=== PATIENT | female | born 1965 ===

== ENCOUNTER 2019-04-10 14:47 | Inpatient (IN) | payer MEDICAID ==
[2019-04-10 15:05] VITALS: BMI 43.0
[2019-04-10 15:52] LABS: BASO % 0.2 % (0.0-2.0); EOS # 0.1 K/uL (0.0-0.7); EOS % 1.5 % (0.0-4.0); HEMOGLOBIN 13.5 g/dL (11.0-16.0); LYMPH # 2.9 K/uL (1.0-4.3); LYMPH % 34.4 % (20.0-40.0); MEAN CELL VOLUME 90.1 fL (81.0-99.0); MEAN CORPUSCULAR HEMOGLOBIN 30.9 pg (27.0-31.0); MEAN CORPUSCULAR HGB CONC 34.3 g/dL (33.0-37.0); MEAN PLATELET VOLUME 8.8 fL (7.2-11.7); MONO # 0.6 K/uL (0.0-0.8); MONO % 6.8 % (0.0-10.0); NEUT # 4.8 K/uL (1.8-7.0); NEUT % 57.1 % (50.0-75.0); NRBC % 0.1 % (0.0-2.0); RBC 4.37 Mil/uL (3.80-5.20); RED CELL DISTRIBUTION WIDTH 12.8 % (11.5-14.5); WHITE BLOOD COUNT 8.5 K/uL (4.8-10.8)
[2019-04-10] MEDS ORDERED: Sodium Chloride 0.9% 1,000 ML IV ONE (15:54)
[2019-04-10 15:55] LABS: SQUAMOUS EPITHIAL 1 /hpf (0-5); URINE BILIRUBIN NEGATIVE (NEGATIVE); URINE BLOOD NEGATIVE (NEGATIVE); URINE CLARITY Clear (Clear); URINE COLOR Yellow (YELLOW); URINE GLUCOSE (UA) NORMAL (Normal); URINE LEUKOCYTE ESTERASE NEG Leu/uL (Negative); URINE PROTEIN NEGATIVE (NEGATIVE); URINE UROBILINOGEN NORMAL mg/dL (0.2-1.0)
[2019-04-10] MEDS ORDERED: Morphine 4 MG/ML VIAL ONE (15:58)
--- NOTE | 2019-04-10 15:59 | C.PDOC ---
History Of Present Illness 54 year old female presents to ED with complaint of left-side pelvic pain that began yesterday. She states that she has had this pain once in the past and went to [facility]. Patient was diagnosed with bilateral ovarian cysts with the left larger than the right. She was instructed to follow up with her MANAGER WATER WASTEWATER, which she has not done. She also complains of dysuria and nausea. Patient is post-menopausal and her last period was sometime in 2018. She denies vomiting, diarrhea, vaginal bleeding, fever, and flank pain. Time Seen by Provider: 04/10/19 15:03 Chief Complaint (Nursing): Female Genitourinary History Per: Patient History/Exam Limitations: no limitations Onset/Duration Of Symptoms: Days (1) Current Symptoms Are (Timing): Still Present Location Of Pain/Discomfort: Other (left side of pelvis) Quality Of Discomfort: "Pain" Associated Symptoms: Nausea. denies: Fever, Chills, Vomiting, Diarrhea, Urinary Symptoms Past Medical History Reviewed: Historical Data, Nursing Documentation, Vital Signs Vital Signs: Last Vital Signs Temp 97.6 F 04/10/19 14:54 Pulse 86 04/10/19 14:54 Resp 18 04/10/19 14:54 BP 133/99 H 04/10/19 14:54 Pulse Ox 98 04/10/19 14:54 Primary Care Provider: Crystal Hernandez - Medical History PMH: Anxiety, Arthritis, Back Problems (chronic pain), Depression, GERD, HTN, Chronic Pain Denies: Chronic Kidney Disease Surgical History: Cholecystectomy (2010) - [facility] Procedures INJECT STEROID (12/27/14) LUMBOSAC SPINE X-RAY NEC (12/27/14) SPINAL CANAL INJECT NEC (12/27/14) Family History: States: Unknown Family Hx - Social History Hx Alcohol Use: No Hx Substance Use: Yes (tramadol) Review Of Systems Constitutional: Negative for: Fever, Chills Gastrointestinal: Positive for: Nausea. Negative for: Vomiting, Diarrhea Genitourinary: Positive for: Dysuria, Pelvic Pain (left-sided). Negative for: Hematuria, Vaginal Bleeding Musculoskeletal: Negative for: Back Pain Physical Exam - Physical Exam Appears: Non-toxic, Other (uncomfortable) Skin: Normal Color, Warm, Dry Head: Atraumatic, Normacephalic Neck: Normal ROM, Supple Chest: Symmetrical, No Deformity Cardiovascular: Rhythm Regular, No Murmur Respiratory: No Accessory Muscle Use, No Rales, No Rhonchi, No Wheezing Gastrointestinal/Abdominal: Bowel Sounds (normoactive), Soft, Tenderness (left lower quadrant/left pelvic area), No Guarding, No Rebound, Other (obese, (-) McBurney's point tenderness) Back: No CVA Tenderness Extremity: Capillary Refill (<2 seconds) Extremity: Bilateral: Atraumatic, Normal Color And Temperature, Normal ROM Pulses: Left Radial: Normal, Right Radial: Normal Neurological/Psych: Oriented x3, Normal Speech, Normal Cognition ED Course And Treatment - Laboratory Results Result Diagrams: 04/10/19 15:48 04/10/19 15:48 O2 Sat by Pulse Oximetry: 98 (in RA) Pulse Ox Interpretation: Normal - CT Scan/US Transvaginal US Other Rad Studies (CT/US): Read By Radiologist CT/US Interpretation: IMPRESSION: Left adnexal tubular structure appears consistent with hydrosalpinx. 3.5 x 2.5 x 3.3 cm probable right anterior uterine fibroid. Progress Note: Transvaginal US ordered for patient. CMP, lipase, CBC, B-HCG and UA ordered for patient. Patient given Morphine IVP and IV fluids. Disposition - Disposition Forms: [employer] (Slovenian) - Scribe Statement The provider has reviewed the documentation as recorded by the Scribe (Yasmin Knutson) All medical record entries made by the Scribe were at my direction and personally dictated by me. I have reviewed the chart and agree that the record accurately reflects my personal performance of the history, physical exam, medical decision making, and the department course for this patient. I have also personally directed, reviewed, and agree with the discharge instructions and disposition.
[2019-04-10] MEDS ORDERED: Sodium Chloride 0.9% 1,000 ML ONE (16:01)
[2019-04-10 16:06] LABS: ALB/GLOB RATIO 1.5 (1.0-2.1); ALBUMIN 4.6 g/dL (3.5-5.0); ALT/SGPT 21 U/L (9-52); AST/SGOT 23 U/L (14-36); BLOOD UREA NITROGEN 20 mg/dL (7-17); CALCIUM 9.6 mg/dl (8.6-10.4); GFR NON-AFRICAN AMERICAN > 60; LIPASE 1384 U/L (23-300)
--- NOTE | 2019-04-10 17:17 | US ---
Date of service: 04/10/2019 HISTORY: left pelvic pain r/o torsion COMPARISON: None available. TECHNIQUE: Real-time transabdominal pelvic ultrasound was performed. In addition a transvaginal pelvic ultrasound was necessary to better depict pelvic anatomy. FINDINGS: UTERUS: Measures 7.8 x 4.1 x 5.2 cm. Anteverted. 3.5 x 2.5 x 3.3 cm heterogeneous uterine mass consistent with right anterior uterine fibroid. ENDOMETRIUM: Measures 6 mm in diameter. CERVIX: No cervical abnormality identified. RIGHT OVARY: Measures 1.7 x 1.1 x 1.7 cm. Blood flow is demonstrated. LEFT OVARY: Measures 2.1 x 1.1 x 1.6 cm. Blood flow is demonstrated. Adnexal tubular structure appears consistent with hydrosalpinx. FREE FLUID: No significant free fluid noted. OTHER FINDINGS: None. IMPRESSION: Left adnexal tubular structure appears consistent with hydrosalpinx. 3.5 x 2.5 x 3.3 cm probable right anterior uterine fibroid.
--- NOTE | 2019-04-10 20:06 | CP.PCM.HP ---
History of Present Illness - History of Present Illness History of Present Illness: Patient seen, evaluated and examined in the Multi-Purpose Room, in the E.D. at approx 1835 hours. Patient received on a stretcher, in moderate pain and discomfort; very anxious patient is a 54 y.o. . LNMP 01/2018, no vaginal bleeding since who presented to E.D. c/o LLQ pain, onset 3 days ago, pain scale 10/10, described as a sharp stabbing sensation, in the LLQ (patient points to the left groin area). Denies nausea, vomiting, diarrhea or constipation. This is the third time patient has experienced this pain. Patient received morphine and toradol in the E.D.: reports pain scale now 8/10. HPI: LLQ pain first onset 2 months ago. Seen in E.D. at [facility], treated for UTI with antibiotics; pain resolved completely. Then 1 month ago, similar pain occurred. Patient returned to E.D. at [facility]. Again, thought to have a UTI and again treated with antibiotics. Patient was advised to follow up with her GEOPHYSICAL PROSPECTING SURVEYOR "as they said I had some kind of cysts"; "I haven't had time to do so". Patient has ongoing GEOPHYSICAL PROSPECTING SURVEYOR relationship with Dr. Martins at [facility] ([address] [place] [address]). 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 P Ob: 1981, , male, 7lb 9oz. [facility] P GEOPHYSICAL PROSPECTING SURVEYOR: 11 x monthly x 7. No h/o STIs, abnormal Pap, leiomyomata. Was told to have ovarian cysts - none of which ever required surgical intervention. Secondary infertility. Monogamous; sexually active. Last Pap late 02/2019. Last Mammogram 2017. Not yet had colonoscopy PMH: HTN. GERD. Chronic low back pain. H/O gallstones. PSH: 2015, laparoscopic cholecystectomy, [facility]; no complications. 1998, D&C - infertility evaluation NKDA Meds: Lisinopril 20 mg po QD. Famotidine 40 mg Q 24H; 2 other meds for chronic LBP one of which is a muscle relaxant - patient does not recall names Soc Hx: denies tobacco, illicit drug or EtOH use. x 30 years. Unemployed. Fam Hx: Father alive 88 y.o. heart disease. Mother age 63 - lymphoma Present on Admission - Present on Admission Any Indicators Present on Admission: No Review of Systems - Review of Systems All systems: reviewed and no additional remarkable complaints except - Gastrointestinal Gastrointestinal: As Per HPI, Abdominal Pain Past Patient History - Infectious Disease Hx of Infectious Diseases: None - Past Medical History & Family History Past Medical History?: Yes Pertinent Family History: Father - heart disease Mother - lymphoma - Past Social History Smoking Status: Never Smoked Alcohol: None Drugs: Denies - CARDIAC Hx Cardiac Disorders: Yes Hx Hypertension: Yes - PULMONARY Hx Respiratory Disorders: No - NEUROLOGICAL Hx Neurological Disorder: No - HEENT Hx HEENT Problems: No - RENAL Hx Chronic Kidney Disease: No - ENDOCRINE/METABOLIC Hx Endocrine Disorders: No - HEMATOLOGICAL/ONCOLOGICAL Hx Blood Disorders: No - INTEGUMENTARY Hx Dermatological Problems: No - MUSCULOSKELETAL/RHEUMATOLOGICAL Hx Arthritis: Yes Hx Back Pain: Yes - GASTROINTESTINAL Hx Gastrointestinal Disorders: Yes Hx Gall Bladder Disease: Yes Hx Gastroesophageal Reflux: Yes Other/Comment: Acid reflux, gallstones. - GENITOURINARY/GYNECOLOGICAL Hx Genitourinary Disorders: No Hx Urinary Tract Infection: Yes LMP:: 01/2018 : 1 Para: 1 Termination of : 0 - PSYCHIATRIC Hx Anxiety: Yes Hx Depression: Yes Hx Substance Use: Yes (tramadol) - SURGICAL HISTORY Hx Cholecystectomy: Yes (2014) Hx Dilation and Curettage: Yes (1998) - ANESTHESIA Hx Anesthesia: Yes Hx Anesthesia Reactions: No Hx Malignant Hyperthermia: No Meds Allergies/Adverse Reactions: Allergies Allergy/AdvReac Type Severity Reaction Status Date / Time No Known Allergies Allergy Verified 04/10/19 14:53 Physical Exam - Constitutional Appears: Well, No Acute Distress - Head Exam Head Exam: ATRAUMATIC, NORMAL INSPECTION, NORMOCEPHALIC - ENT Exam ENT Exam: Mucous Membranes Moist - Respiratory Exam Respiratory Exam: NORMAL BREATHING PATTERN - Cardiovascular Exam Cardiovascular Exam: REGULAR RHYTHM - GI/Abdominal Exam GI & Abdominal Exam: Normal Bowel Sounds, Soft Additional comments: Morbidly obese. Non tender in all quadrants. Minimal LLQ discomfort to deep palpation. No rebound tenderness; no guarding - Exam External exam: NORMAL EXTERNAL EXAM Speculum exam: NORMAL SPECULUM EXAM Bimanual exam: NORMAL BIMANUAL EXAM (No cervical motion, uterine or adnexal tenderness. Minimal suprapubic tenderness) - Extremities Exam Extremities exam: Positive for: full ROM, normal inspection - Back Exam Back exam: NORMAL INSPECTION - Neurological Exam Neurological exam: Alert, Oriented x3 - Psychiatric Exam Psychiatric exam: Anxious, Normal Affect - Skin Skin Exam: Dry, Intact, Normal Color, Warm Results - Vital Signs Recent Vital Signs: Last Vital Signs Temp 97.8 F 04/10/19 19:18 Pulse 84 04/10/19 19:18 Resp 20 04/10/19 19:18 BP 140/82 04/10/19 19:18 Pulse Ox 98 04/10/19 19:18 - Labs Result Diagrams: 04/10/19 15:48 04/10/19 15:48 Labs: Laboratory Results - last 24 hr 04/10/19 04/10/19 04/10/19 15:48 15:48 15:48 WBC 8.5 RBC 4.37 Hgb 13.5 Hct 39.3 MCV 90.1 MCH 30.9 MCHC 34.3 RDW 12.8 Plt Count 310 MPV 8.8 Neut % (Auto) 57.1 Lymph % (Auto) 34.4 [place] % (Auto) 6.8 Eos % (Auto) 1.5 Baso % (Auto) 0.2 Neut # (Auto) 4.8 Lymph # (Auto) 2.9 [place] # (Auto) 0.6 Eos # (Auto) 0.1 Baso # (Auto) 0.0 Sodium 137 Potassium 3.7 Chloride 102 Carbon Dioxide 25 Anion Gap 14 BUN 20 H Creatinine 0.5 L Est GFR ( Amer) > 60 Est GFR (Non-Af Amer) > 60 Random Glucose 116 H Calcium 9.6 Total Bilirubin 0.5 AST 23 ALT 21 Alkaline Phosphatase 73 Total Protein 7.7 Albumin 4.6 Globulin 3.1 Albumin/Globulin Ratio 1.5 Lipase 1384 H Urine Color Yellow Urine Clarity Clear Urine pH 6.0 Ur Specific [place] 1.005 Urine Protein Negative Urine Glucose (UA) Normal Urine Ketones Negative Urine Blood Negative Urine Nitrate Negative Urine Bilirubin Negative Urine Urobilinogen Normal Ur Leukocyte Esterase Neg Urine WBC (Auto) < 1 Urine RBC (Auto) < 1 Ur Squamous Epith Cells 1 Assessment & Plan - Assessment and Plan (Free Text) Assessment: Pelvic ultrasound: uterus 7.8 x 4.1 x 5.2 cm; with a "3.5 x 2.5 x 3.3 cm probable right anterior uterine fibroid". "Left adnexal structure appears c/w hydrosalpinx". No significant free fluid. Right ovary 1.7 x 1.1 x 1.7 cm. Left ovary 2.1 x 1.1 x 1.6 cm. Blood flow demonstrated in both adnexae. WBC 8.5 Lipase 1384 54 y.o. P1, postmenopausal x 1 year, h/o chronic low back pain, GERD, UTIs, anxiety with left hydrosalpinx and elevated lipase - no sign of infection. Benign abdominal and revenue cycle analyst/pelvic examination. Patient admitted for pain management. Patient reassured previous finding of ovarian cysts is wnl for women in the child-bearing years. During these years, with monthly ovulation, ovarian cysts are common and regress spontaneously. It was D/W patient LLQ pain of this recurrent nature, may have a GI component to it and that GI evaluation should be considered to R/O diverticulitis. Lastly, will seek assistance in evaluating elevated lipase, especially as patient is S/P cholecystectomy. Patient expressed an understanding of the above, and agrees with the above plan of management. Jerel zafarkiana is clinically stable. Plan: Admit RUQ ultrasound Heart Healthy Diet, until midnight. NPO after midnight for abdominal ultrasound Lisinopril 20 mg p.o. daily Famitidine 40 mg p.o. daily Toradol 10 mg p.o. Q 6 h, PRN GI consultation Medicine consultation - Date & Time Date: 04/10/19 Time: 20:21
--- NOTE | 2019-04-11 00:16 | CP.PCM.CON ---
<Alicia Moreno - Last Filed: 04/11/19 04:32> History of Present Illness - History of Present Illness History of Present Illness: PGY-1 Alicia Moreno D.O. Medicine Consult note for Dr. Cale Brooks's service: Patient is a 54 yo female with HTN, GERD, obesity, chronic back pain, and ovar azucena cysts who presented with LLQ pain. Medicine was consulted by OBGYN for elevate lipase. Patient reports having episodes of LLQ. She was evaluated at [facility] and was told she had overian cysts that need to be observed as an outpatient. Patient says she has not had the chance to see her OBGYN in the last month since her last episode of pain. Patient states that she has a cholecystectomy about 5 years ago. She denies epigastric or RUQ pain. She denies alcohol use. She endorses occasional constipation that she attributes to Percocet use for back pain. PMH: HTN, GERD, obesity, ovarian cysts, recurrent UTIs, chronic low back pain PSH: lap cholecystectomy 2014 Meds: Lisinopril 20 mg PO daily, Famotidine 40 mg PO daily, Percocet 10/325 mg PO Q8H PRN, unspecified muscle relaxant All: NKA FH: father (88)- heart disease, mother ( 63)- lymphoma SH: , unemployed, denies alcohol, tobacco, and illicit drug use PMD: unknown OBGYN: [facility] Review of Systems - Constitutional Constitutional: absent: Chills, Fever - EENT Eyes: absent: Change in Vision Ears: absent: Decreased Hearing, Tinnitus Nose/Mouth/Throat: absent: Nasal Congestion, Sore Throat - Cardiovascular Cardiovascular: absent: Chest Pain, Palpitations - Respiratory Respiratory: absent: Cough, Dyspnea - Gastrointestinal Gastrointestinal: Constipation (occasional ). absent: Abdominal Pain, Diarrhea, Nausea, Vomiting - Genitourinary Genitourinary: absent: Dysuria, Hematuria - Reproductive: Female Reproductive:Female: Menopausal, Pelvic Pain (LLQ/inguinal) - Musculoskeletal Musculoskeletal: Back Pain - Integumentary Integumentary: absent: Lesions, Pruritus, Rash - Neurological Neurological: absent: Dizziness, Numbness, Focal Weakness, Tingling - Psychiatric Psychiatric: absent: Anxiety, Depression - Endocrine Endocrine: absent: Fatigue, Palpitations - Hematologic/Lymphatic Hematologic: absent: Easy Bleeding, Easy Bruising, Lymphadenopathy Past Patient History - Infectious Disease Hx of Infectious Diseases: None - Tetanus Immunizations Tetanus Immunization: Unknown - Past Medical History & Family History Past Medical History?: Yes Past Family History: Reviewed and not pertinent - Past Social History Smoking Status: Never Smoked Chewing Tobacco Use: No Cigar Use: No Alcohol: None Drugs: Denies Home Situation {Lives}: With Family () - CARDIAC Hx Cardiac Disorders: Yes Hx Hypertension: Yes - PULMONARY Hx Respiratory Disorders: No - NEUROLOGICAL Hx Neurological Disorder: No - HEENT Hx HEENT Problems: No - RENAL Hx Chronic Kidney Disease: No - ENDOCRINE/METABOLIC Hx Endocrine Disorders: No - HEMATOLOGICAL/ONCOLOGICAL Hx Blood Disorders: No - INTEGUMENTARY Hx Dermatological Problems: No - MUSCULOSKELETAL/RHEUMATOLOGICAL Hx Falls: No - GASTROINTESTINAL Hx Gastrointestinal Disorders: Yes Hx Gall Bladder Disease: Yes Hx Gastroesophageal Reflux: Yes Other/Comment: Acid reflux, gallstones. - GENITOURINARY/GYNECOLOGICAL Hx Genitourinary Disorders: No Hx Urinary Tract Infection: Yes - PSYCHIATRIC Hx Substance Use: Yes (tramadol) - SURGICAL HISTORY Hx Cholecystectomy: Yes (2014) Hx Dilation and Curettage: Yes (1998) - ANESTHESIA Hx Anesthesia: Yes Hx Anesthesia Reactions: No Hx Malignant Hyperthermia: No Meds Allergies/Adverse Reactions: Allergies Allergy/AdvReac Type Severity Reaction Status Date / Time No Known Allergies Allergy Verified 04/10/19 14:53 - Medications Medications: Current Medications Famotidine (Pepcid) 40 mg PO DAILY [facility] Lactated Ringer's (Lactated Ringer's) 1,000 mls @ 100 mls/hr IV .Q10H [facility] Ketorolac Tromethamine (Toradol) 10 mg PO Q6 PRN PRN Reason: Pain, moderate (4-7) Last Admin: 04/10/19 22:01 Dose: 10 mg Lisinopril (Zestril) 20 mg PO DAILY [facility] Pneumococcal Polyvalent Vaccine (Pneumovax 23 Vaccine) 0.5 ml IM .ONCE ONE Stop: 04/12/19 10:01 Physical Exam - Constitutional Appears: Non-toxic, No Acute Distress - Head Exam Head Exam: ATRAUMATIC, NORMAL INSPECTION - Eye Exam Eye Exam: EOMI, Normal appearance, PERRL - ENT Exam ENT Exam: Mucous Membranes Moist - Neck Exam Neck exam: Positive for: Normal Inspection - Respiratory Exam Respiratory Exam: Clear to Auscultation Bilateral, NORMAL BREATHING PATTERN - Cardiovascular Exam Cardiovascular Exam: RRR, +S1, +S2 - GI/Abdominal Exam GI & Abdominal Exam: Soft, Tenderness (LLQ). absent: Guarding, Rebound Additional comments: negative Resendez's sign - Extremities Exam Extremities exam: Positive for: normal inspection - Neurological Exam Neurological exam: Alert, CN II-XII Intact, Oriented x3 - Psychiatric Exam Psychiatric exam: Normal Affect, Normal Mood - Skin Skin Exam: Dry, Normal Color, Warm Results - Vital Signs Recent Vital Signs: Last Vital Signs Temp 97.8 F 04/10/19 19:18 Pulse 84 04/10/19 19:18 Resp 20 04/10/19 19:18 BP 140/82 04/10/19 19:18 Pulse Ox 98 04/10/19 19:18 - Labs Result Diagrams: 04/10/19 15:48 04/10/19 15:48 Labs: Laboratory Results - last 24 hr 04/10/19 04/10/19 04/10/19 15:48 15:48 15:48 WBC 8.5 RBC 4.37 Hgb 13.5 Hct 39.3 MCV 90.1 MCH 30.9 MCHC 34.3 RDW 12.8 Plt Count 310 MPV 8.8 Neut % (Auto) 57.1 Lymph % (Auto) 34.4 [place] % (Auto) 6.8 Eos % (Auto) 1.5 Baso % (Auto) 0.2 Neut # (Auto) 4.8 Lymph # (Auto) 2.9 [place] # (Auto) 0.6 Eos # (Auto) 0.1 Baso # (Auto) 0.0 Sodium 137 Potassium 3.7 Chloride 102 Carbon Dioxide 25 Anion Gap 14 BUN 20 H Creatinine 0.5 L Est GFR ( Amer) > 60 Est GFR (Non-Af Amer) > 60 Random Glucose 116 H Calcium 9.6 Total Bilirubin 0.5 AST 23 ALT 21 Alkaline Phosphatase 73 Total Protein 7.7 Albumin 4.6 Globulin 3.1 Albumin/Globulin Ratio 1.5 Lipase 1384 H Urine Color Yellow Urine Clarity Clear Urine pH 6.0 Ur Specific [place] 1.005 Urine Protein Negative Urine Glucose (UA) Normal Urine Ketones Negative Urine Blood Negative Urine Nitrate Negative Urine Bilirubin Negative Urine Urobilinogen Normal Ur Leukocyte Esterase Neg Urine WBC (Auto) < 1 Urine RBC (Auto) < 1 Ur Squamous Epith Cells 1 Assessment & Plan - Assessment and Plan (Free Text) Assessment: Patient is a 54 yo female with HTN, GERD, obesity, chronic back pain, and ovarian cysts who presented with LLQ pain. Medicine was consulted by OBGYN for elevate lipase. Patient is s/p cholecystectomy. Plan: Elevated lipase, acute - Lipase 1384 - Repeat in AM - Abd US: Evidence of hepatic steatosis. Calcified scattered hepatic granulomata. Status post cholecystectomy. - CT A/P pending - Lipid panel in AM - LR @ 100 cc/hr - GI consulted (Christoph) Left lower quadrant pain, acute, intermittent - Pelvic/transvag US: Left adnexal tubular structure appears consistent with hydrosalpinx. 3.5 x 2.5 x 3.3 cm probable right anterior uterine fibroid. - UA negative - Gonorhea/Chlamydia pending - Toradol 10 mg PO Q6H PRN - OBGYN primary (Atul) Hypertension, chronic - Vitals Q6H - Lisinopril 20 mg PO daily Gastroesophageal disease, chronic - Pepcid 40 mg PO daily Chronic back pain, chronic - Toradol 10 mg PO Q6H PRN Case discussed with attending, Dr. Brooks. <Cale Brooks - Last Filed: 04/12/19 06:44> Meds - Medications Medications: Current Medications Famotidine (Pepcid) 40 mg PO DAILY [facility] Last Admin: 04/11/19 09:47 Dose: 40 mg Heparin Sodium (Porcine) (Heparin) 5,000 units SC Q12 [facility] Last Admin: 04/11/19 21:15 Dose: 5,000 units Lactated Ringer's (Lactated Ringer's) 1,000 mls @ 100 mls/hr IV .Q10H [facility] Last Admin: 04/12/19 06:31 Dose: Not Given Ketorolac Tromethamine (Toradol) 10 mg PO Q6 PRN PRN Reason: Pain, moderate (4-7) Last Admin: 04/11/19 13:19 Dose: 10 mg Lisinopril (Zestril) 20 mg PO DAILY [facility] Last Admin: 04/11/19 09:47 Dose: 20 mg Pneumococcal Polyvalent Vaccine (Pneumovax 23 Vaccine) 0.5 ml IM .ONCE ONE Stop: 04/12/19 10:01 Results - Vital Signs Recent Vital Signs: Last Vital Signs Temp 97.7 F 04/12/19 00:00 Pulse 73 04/12/19 00:00 Resp 20 04/12/19 00:00 BP 110/73 04/12/19 00:00 Pulse Ox 97 04/12/19 00:00 - Labs Result Diagrams: 04/10/19 15:48 04/11/19 06:40 Labs: Laboratory Results - last 24 hr 04/11/19 06:40 Sodium 139 Potassium 4.1 Chloride 101 Carbon Dioxide 30 Anion Gap 13 BUN 20 H Creatinine 0.7 Est GFR ( Amer) > 60 Est GFR (Non-Af Amer) > 60 Random Glucose 118 H Calcium 9.3 Total Bilirubin 0.5 AST 34 ALT 36 Alkaline Phosphatase 73 Total Protein 7.3 Albumin 4.0 Globulin 3.4 Albumin/Globulin Ratio 1.2 Triglycerides 74 Cholesterol 176 LDL Cholesterol Direct 102 HDL Cholesterol 53 Lipase 84 Attending/Attestation - Attestation I have fully participated in the care of the patient.: Yes I have reviewed all pertinent clinical information: Yes Notes (Text): 04/12/19 06:44 pt was seen and managed by me with resident.
[2019-04-11] MEDS: Lactated Ringer's 1,000 ML IV SCH ×4 (00:50→21:24)
[2019-04-11 07:04] LABS: ALB/GLOB RATIO 1.2 (1.0-2.1); ALT/SGPT 36 U/L (9-52); AST/SGOT 34 U/L (14-36); BLOOD UREA NITROGEN 20 mg/dL (7-17); CALCIUM 9.3 mg/dl (8.6-10.4); GFR NON-AFRICAN AMERICAN > 60; HDL CHOLESTEROL 53 mg/dL (30-70); LIPASE 84 U/L (23-300)
[2019-04-11 07:14] LABS: LDL CHOLESTEROL 102 mg/dL (0-129)
--- NOTE | 2019-04-11 07:46 | CP.PCM.PN ---
<Elizabeth Mcguire L - Last Filed: 04/11/19 13:26> Subjective - Date & Time of Evaluation Date of Evaluation: 04/11/19 Time of Evaluation: 07:46 - Subjective Subjective: Resident Progress Note for Hospitalist Service Patient examined at bedside. No acute events overnight. Patient reports significant improvement in LLQ abdominal pain. She also had a bowel movement this morning which was normal. Denies any fevers, chills, nausea, vomiting. Objective - Vital Signs/Intake and Output Vital Signs (last 24 hours): Temp Pulse Resp BP Pulse Ox 97 F L 67 18 110/73 99 04/11/19 00:34 04/11/19 00:34 04/11/19 00:34 04/11/19 00:34 04/11/19 00:34 Intake and Output: 04/11/19 04/11/19 06:59 18:59 Intake Total 200 Balance 200 - Medications Medications: Current Medications Famotidine (Pepcid) 40 mg PO DAILY [facility] Lactated Ringer's (Lactated Ringer's) 1,000 mls @ 100 mls/hr IV .Q10H [facility] Last Admin: 04/11/19 06:56 Dose: 100 mls/hr Ketorolac Tromethamine (Toradol) 10 mg PO Q6 PRN PRN Reason: Pain, moderate (4-7) Last Admin: 04/11/19 06:55 Dose: 10 mg Lisinopril (Zestril) 20 mg PO DAILY [facility] Pneumococcal Polyvalent Vaccine (Pneumovax 23 Vaccine) 0.5 ml IM .ONCE ONE Stop: 04/12/19 10:01 - Labs Labs: 04/10/19 15:48 04/11/19 06:40 - Constitutional Appears: Non-toxic, No Acute Distress - Head Exam Head Exam: ATRAUMATIC, NORMOCEPHALIC - Eye Exam Eye Exam: EOMI, Normal appearance - ENT Exam ENT Exam: Mucous Membranes Moist - Neck Exam Neck exam: Positive for: Normal Inspection - Respiratory Exam Respiratory Exam: Clear to Auscultation Bilateral, NORMAL BREATHING PATTERN - Cardiovascular Exam Cardiovascular Exam: RRR, +S1, +S2. absent: Tachycardia - GI/Abdominal Exam GI & Abdominal Exam: Soft, Normal Bowel Sounds. absent: Guarding, Rebound, Rigid, Tenderness - Extremities Exam Extremities exam: Positive for: normal inspection - Neurological Exam Neurological exam: Alert, CN II-XII Intact, Oriented x3 - Psychiatric Exam Psychiatric exam: Normal Affect, Normal Mood - Skin Skin Exam: Dry, Normal Color, Warm Assessment and Plan - Assessment and Plan (Free Text) Assessment: Patient is a 54 year old female with past medical history of HTN, GERD, cholecystectomy, obesity, chronic back pain, and ovarian cysts who presented with LLQ pain. Medicine was consulted by OBGYN for elevated lipase. Plan: Elevated lipase - resolved - Abd US: Evidence of hepatic steatosis. Calcified scattered hepatic granulomata. Status post cholecystectomy. - CT A/P shows s/p cholecystectomy, unremarkable pancreas and bowel, 1 cm right renal calcification, no hydronephrosis or gross mass, small hiatal hernia - Lipid panel unremarkable - LR @ 100 cc/hr - plan for outpatient MRCP as per Dr. Hawthorne's recs Left lower quadrant pain - Pelvic/transvag US: Left adnexal tubular structure appears consistent with hy drosalpinx. 3.5 x 2.5 x 3.3 cm probable right anterior uterine fibroid. - UA unremarkable - Gonorrhea/Chlamydia pending - Toradol 10 mg PO Q6H PRN - further management per OBGYN primary Hypertension - Lisinopril 20 mg PO daily Gastroesophageal disease - Pepcid 40 mg PO daily Chronic back pain - Toradol 10 mg PO Q6H PRN PPX - SCDs, Heparin SC Thank you for this consult. Medicine team will sign off at this time. Please reconsult as necessary if there are any questions or concerns. Case reviewed with Dr. Augustus Mcguire PGY-1 <Tran Coffman - Last Filed: 04/12/19 16:27> Objective - Vital Signs/Intake and Output Vital Signs (last 24 hours): Temp Pulse Resp BP Pulse Ox 98.1 F 76 20 160/89 H 98 04/12/19 08:00 04/12/19 08:00 04/12/19 08:00 04/12/19 08:00 04/12/19 08:00 Intake and Output: 04/12/19 04/12/19 06:59 18:59 Intake Total 760 Balance 760 - Labs Labs: 04/10/19 15:48 04/11/19 06:40 Attending/Attestation - Attestation I have personally seen and examined this patient.: Yes I have fully participated in the care of the patient.: Yes I have reviewed all pertinent clinical information, including history, physical exam and plan: Yes Notes (Text): consulted for high lipase. Its down today. spoke to Dr Romero. out patient MRCP and out patient follow up
[2019-04-11 07:50] VITALS: RESP 20
--- NOTE | 2019-04-11 08:27 | CP.PCM.PN ---
<LaRulas Maycol - Last Filed: 04/11/19 08:28> Subjective - Date & Time of Evaluation Date of Evaluation: 04/11/19 Time of Evaluation: 08:20 - Subjective Subjective: PGY1 OBGYN progress note for Dr. Zeng. Pt seen and examined at bedside. Pt reports having a bowel movement this AM and has relief of abdominal pain. Pt tolerating diet and denies N/V/F/C. Pt denies headaches, vision changes, chest pain, SOB, abdominal pain. Pt does report history of constipation and taking percocet 5/325 q8H for chronic back pain. Objective - Vital Signs/Intake and Output Vital Signs (last 24 hours): Temp Pulse Resp BP Pulse Ox 97.9 F 73 20 145/71 97 04/11/19 07:48 04/11/19 07:48 04/11/19 07:48 04/11/19 07:48 04/11/19 07:48 Intake and Output: 04/11/19 04/11/19 06:59 18:59 Intake Total 200 Balance 200 - Medications Medications: Current Medications Famotidine (Pepcid) 40 mg PO DAILY [facility] Lactated Ringer's (Lactated Ringer's) 1,000 mls @ 100 mls/hr IV .Q10H [facility] Last Admin: 04/11/19 06:56 Dose: 100 mls/hr Ketorolac Tromethamine (Toradol) 10 mg PO Q6 PRN PRN Reason: Pain, moderate (4-7) Last Admin: 04/11/19 06:55 Dose: 10 mg Lisinopril (Zestril) 20 mg PO DAILY [facility] Pneumococcal Polyvalent Vaccine (Pneumovax 23 Vaccine) 0.5 ml IM .ONCE ONE Stop: 04/12/19 10:01 - Labs Labs: 04/10/19 15:48 04/11/19 06:40 - Constitutional Appears: Non-toxic, No Acute Distress - Head Exam Head Exam: NORMAL INSPECTION - Eye Exam Eye Exam: Normal appearance - Respiratory Exam Respiratory Exam: Clear to Ausculation Bilateral, NORMAL BREATHING PATTERN. absent: Rhonchi, Wheezes - Cardiovascular Exam Cardiovascular Exam: +S1, +S2. absent: Murmur - GI/Abdominal Exam GI & Abdominal Exam: Soft, Normal Bowel Sounds. absent: Firm, Guarding, Rigid - Extremities Exam Extremities Exam: Full ROM - Back Exam Back Exam: absent: CVA tenderness (L), CVA tenderness (R) - Neurological Exam Neurological Exam: Alert, Awake, Oriented x3 - Psychiatric Exam Psychiatric exam: Anxious, Normal Mood - Skin Skin Exam: Normal Color, Warm Assessment and Plan - Assessment and Plan (Free Text) Assessment: 54 y female w/ PMhx of UTis, post menopasual X 1 year, chronic back pain, GERD, anxiety admitted for LLQ abdominal pain & elevated lipase - currently stable, no abdominal pain reported at todays time examination; previous pain likely due to constipation; however will f/u GI & CT recs. Abdominal pain Constipation/ hydrosalpinx / depression/ ? - inital WBCs wnl - initial lipase 134 -> 84 (04/11) - Pelvic ultrasound: Pelvic ultrasound: uterus 7.8 x 4.1 x 5.2 cm; with a "3.5 x 2.5 x 3.3 cm probable right anterior uterine fibroid". "Left adnexal structure appears c/w hydrosalpinx". No significant free fluid. Right ovary 1.7 x 1.1 x 1.7 cm. Left ovary 2.1 x 1.1 x 1.6 cm. Blood flow demonstrated in both adnexae - encourage increase in fiber intake - F/u CT scan - F/u GI recs - toradol 10 mg PO daily - LR 100 cc/hr - f/u G/C History of HTN - c/w home medication lisinopril 20 mg PO daily History of GERD - c/w pepcid 40 mg Po daily [facility], PGY1 Will discuss w/ attending <Graciela Zeng S - Last Filed: 04/11/19 09:32> Objective - Vital Signs/Intake and Output Vital Signs (last 24 hours): Temp Pulse Resp BP Pulse Ox 97.9 F 73 20 145/71 97 04/11/19 07:48 04/11/19 07:48 04/11/19 07:48 04/11/19 07:48 04/11/19 07:48 Intake and Output: 04/11/19 04/11/19 06:59 18:59 Intake Total 200 Balance 200 - Medications Medications: Current Medications Famotidine (Pepcid) 40 mg PO DAILY [facility] Heparin Sodium (Porcine) (Heparin) 5,000 units SC Q12 [facility] Lactated Ringer's (Lactated Ringer's) 1,000 mls @ 100 mls/hr IV .Q10H [facility] Last Admin: 04/11/19 06:56 Dose: 100 mls/hr Ketorolac Tromethamine (Toradol) 10 mg PO Q6 PRN PRN Reason: Pain, moderate (4-7) Last Admin: 04/11/19 06:55 Dose: 10 mg Lisinopril (Zestril) 20 mg PO DAILY [facility] Pneumococcal Polyvalent Vaccine (Pneumovax 23 Vaccine) 0.5 ml IM .ONCE ONE Stop: 04/12/19 10:01 - Labs Labs: 04/10/19 15:48 04/11/19 06:40 Assessment and Plan - Assessment and Plan (Free Text) Plan: Agree with above note with following addition. Pt seen & examined by me with resident. She report h/o chronic constipation. She states pain in improved today. I/P as above addendum: Constipation/ 1: increase dietary fiber pt takes psyllium husk. increase vegetable intake, broccoli, spinach, kale 2: increase water intake 3: probiotics 4: risk of diverticulitis d/w pt. 5: she may take dulcolax supp for relief of chronic constipation, if medically cleared today by GI>
--- NOTE | 2019-04-11 09:22 | US ---
Date of service: 04/10/2019 HISTORY: ELEVATED LIPASE, EVAL GALLBLADDER COMPARISON: April 10, 2019. CT abdomen and pelvis. TECHNIQUE: Sonographic evaluation of the right upper quadrant of the abdomen. FINDINGS: LIVER: Measures 15.5 cm in length. Patent portal and hepatic venous systems. Hepatopedal blood flow. Fatty infiltration manifest ultrasonographically as increased echogenicity of the liver parenchyma. No mass. No intrahepatic bile duct dilatation. GALLBLADDER: Status post cholecystectomy. No abnormality is seen in the gallbladder fossa. COMMON BILE DUCT: Measures 6.1 mm. No stones. No dilatation. PANCREAS: Unremarkable as visualized. No mass. No ductal dilatation. RIGHT KIDNEY: Measures 6.1 x 12.1 cm in length. Midpole echogenic focus 6 x 11 x 13 mm consistent with calculus disease, finding confirmed on CT scan. AORTA: No aneurysmal dilatation. IVC: Unremarkable. OTHER FINDINGS: None . IMPRESSION: No acute findings related to/ accounting for the clinical presentation. Additional benign and/or incidental findings described above. Concordant findings (preliminary report) provided by [employer].
--- NOTE | 2019-04-11 10:04 | CP.PCM.CON ---
History of Present Illness - History of Present Illness History of Present Illness: this is a 54 year old woman with an elevated lipase and an abnormal ultrasound scan of the liver. Patient was admitted 04/10/2019 with a one-day history of LLQ pain, severe, accompanied by nausea, but no vomiting. Her appetite is good and her weight is stable. She gets heartburn from spicy food, She denies having difficulty swallowing. She has chronic constipation which she attributes to pain medication. She denies having rectal bleeding. Evaluation in the ER included routine blood work which showed a lipase of 1384. Sonogram showed increased echogenicitiy of the liver, consistent with fatty liver. A recent CT scan at [facility] on 02/16/2019 showed an "unremarkable" liver. Review of Systems - Review of Systems All systems: reviewed and no additional remarkable complaints except - Constitutional Constitutional: absent: Chills, Fever - Cardiovascular Cardiovascular: absent: Chest Pain, Palpitations - Respiratory Respiratory: absent: Cough, Dyspnea - Gastrointestinal Gastrointestinal: Abdominal Pain, Constipation, Heartburn, Nausea. absent: Dysphagia, Loose Stools, Vomiting - Genitourinary Genitourinary: absent: Dysuria, Hematuria - Musculoskeletal Musculoskeletal: Back Pain Past Patient History - Infectious Disease Hx of Infectious Diseases: None - Tetanus Immunizations Tetanus Immunization: Unknown - Past Medical History & Family History Past Medical History?: Yes Past Family History: Reviewed and not pertinent - Past Social History Smoking Status: Never Smoked Chewing Tobacco Use: No Cigar Use: No Alcohol: None Drugs: Denies Home Situation {Lives}: With Family () - CARDIAC Hx Cardiac Disorders: Yes Hx Hypertension: Yes - PULMONARY Hx Respiratory Disorders: No - NEUROLOGICAL Hx Neurological Disorder: No - HEENT Hx HEENT Problems: No - RENAL Hx Chronic Kidney Disease: No - ENDOCRINE/METABOLIC Hx Endocrine Disorders: No - HEMATOLOGICAL/ONCOLOGICAL Hx Blood Disorders: No - INTEGUMENTARY Hx Dermatological Problems: No - MUSCULOSKELETAL/RHEUMATOLOGICAL Hx Falls: No - GASTROINTESTINAL Hx Gastrointestinal Disorders: Yes Hx Gall Bladder Disease: Yes Hx Gastroesophageal Reflux: Yes Other/Comment: Acid reflux, gallstones. - GENITOURINARY/GYNECOLOGICAL Hx Genitourinary Disorders: No Hx Urinary Tract Infection: Yes - PSYCHIATRIC Hx Substance Use: Yes (tramadol) - SURGICAL HISTORY Hx Cholecystectomy: Yes (2014) Hx Dilation and Curettage: Yes (1998) - ANESTHESIA Hx Anesthesia: Yes Hx Anesthesia Reactions: No Hx Malignant Hyperthermia: No Meds Allergies/Adverse Reactions: Allergies Allergy/AdvReac Type Severity Reaction Status Date / Time No Known Allergies Allergy Verified 04/10/19 14:53 - Medications Medications: Current Medications Famotidine (Pepcid) 40 mg PO DAILY [facility] Last Admin: 04/11/19 09:47 Dose: 40 mg Heparin Sodium (Porcine) (Heparin) 5,000 units SC Q12 [facility] Last Admin: 04/11/19 09:51 Dose: Not Given Lactated Ringer's (Lactated Ringer's) 1,000 mls @ 100 mls/hr IV .Q10H [facility] Last Admin: 04/11/19 09:52 Dose: Not Given Ketorolac Tromethamine (Toradol) 10 mg PO Q6 PRN PRN Reason: Pain, moderate (4-7) Last Admin: 04/11/19 06:55 Dose: 10 mg Lisinopril (Zestril) 20 mg PO DAILY [facility] Last Admin: 04/11/19 09:47 Dose: 20 mg Pneumococcal Polyvalent Vaccine (Pneumovax 23 Vaccine) 0.5 ml IM .ONCE ONE Stop: 04/12/19 10:01 Physical Exam - Constitutional Appears: No Acute Distress - Head Exam Head Exam: ATRAUMATIC, NORMOCEPHALIC - Eye Exam Eye Exam: EOMI, PERRL - Neck Exam Neck exam: Negative for: Lymphadenopathy, Thyromegaly - Respiratory Exam Respiratory Exam: NORMAL BREATHING PATTERN. absent: Rales, Rhonchi, Wheezes - Cardiovascular Exam Cardiovascular Exam: REGULAR RHYTHM, +S1, +S2. absent: Gallop, Rubs, Systolic Murmur - GI/Abdominal Exam GI & Abdominal Exam: Normal Bowel Sounds, Soft. absent: Mass, Organomegaly, Tenderness - Rectal Exam Rectal Exam: Deferred - Extremities Exam Extremities exam: Negative for: calf tenderness, pedal edema Results - Vital Signs Recent Vital Signs: Last Vital Signs Temp 97.9 F 04/11/19 07:48 Pulse 73 04/11/19 07:48 Resp 20 04/11/19 07:48 BP 145/71 04/11/19 07:48 Pulse Ox 97 04/11/19 07:48 - Labs Result Diagrams: 04/10/19 15:48 04/11/19 06:40 Labs: Laboratory Results - last 24 hr 04/10/19 04/10/19 04/10/19 15:48 15:48 15:48 WBC 8.5 RBC 4.37 Hgb 13.5 Hct 39.3 MCV 90.1 MCH 30.9 MCHC 34.3 RDW 12.8 Plt Count 310 MPV 8.8 Neut % (Auto) 57.1 Lymph % (Auto) 34.4 [place] % (Auto) 6.8 Eos % (Auto) 1.5 Baso % (Auto) 0.2 Neut # (Auto) 4.8 Lymph # (Auto) 2.9 [place] # (Auto) 0.6 Eos # (Auto) 0.1 Baso # (Auto) 0.0 Sodium 137 Potassium 3.7 Chloride 102 Carbon Dioxide 25 Anion Gap 14 BUN 20 H Creatinine 0.5 L Est GFR ( Amer) > 60 Est GFR (Non-Af Amer) > 60 Random Glucose 116 H Calcium 9.6 Total Bilirubin 0.5 AST 23 ALT 21 Alkaline Phosphatase 73 Total Protein 7.7 Albumin 4.6 Globulin 3.1 Albumin/Globulin Ratio 1.5 Triglycerides Cholesterol LDL Cholesterol Direct HDL Cholesterol Lipase 1384 H Urine Color Yellow Urine Clarity Clear Urine pH 6.0 Ur Specific [place] 1.005 Urine Protein Negative Urine Glucose (UA) Normal Urine Ketones Negative Urine Blood Negative Urine Nitrate Negative Urine Bilirubin Negative Urine Urobilinogen Normal Ur Leukocyte Esterase Neg Urine WBC (Auto) < 1 Urine RBC (Auto) < 1 Ur Squamous Epith Cells 1 Urine HCG, Qual 04/11/19 04/11/19 02:04 06:40 WBC RBC Hgb Hct MCV MCH MCHC RDW Plt Count MPV Neut % (Auto) Lymph % (Auto) [place] % (Auto) Eos % (Auto) Baso % (Auto) Neut # (Auto) Lymph # (Auto) [place] # (Auto) Eos # (Auto) Baso # (Auto) Sodium 139 Potassium 4.1 Chloride 101 Carbon Dioxide 30 Anion Gap 13 BUN 20 H Creatinine 0.7 Est GFR ( Amer) > 60 Est GFR (Non-Af Amer) > 60 Random Glucose 118 H Calcium 9.3 Total Bilirubin 0.5 AST 34 ALT 36 Alkaline Phosphatase 73 Total Protein 7.3 Albumin 4.0 Globulin 3.4 Albumin/Globulin Ratio 1.2 Triglycerides 74 Cholesterol 176 LDL Cholesterol Direct 102 HDL Cholesterol 53 Lipase 84 Urine Color Urine Clarity Urine pH Ur Specific [place] Urine Protein Urine Glucose (UA) Urine Ketones Urine Blood Urine Nitrate Urine Bilirubin Urine Urobilinogen Ur Leukocyte Esterase Urine WBC (Auto) Urine RBC (Auto) Ur Squamous Epith Cells Urine HCG, Qual Negative Assessment & Plan (1) Elevated lipase Assessment and Plan: A single elevated lipase level was found in the ER, and the repeat level was normal at 84. The pain in the LLQ is not consistent with pain from pancreatitis. CT scan showed no obvious shamir-pancreatic inflammatory changes. Recommend MRCP, which can be done an an outpatient. Status: Acute
--- NOTE | 2019-04-11 10:20 | CT ---
Date of service: 04/11/2019 PROCEDURE: CT Abdomen and Pelvis without intravenous contrast HISTORY: elev lipase COMPARISON: None. TECHNIQUE: Technique. Contrast dose: Radiation dose: Total exam DLP = 1134.1 mGy-cm. This CT exam was performed using one or more of the following dose reduction techniques: Automated exposure control, adjustment of the mA and/or kV according to patient size, and/or use of iterative reconstruction technique. FINDINGS: LOWER THORAX: Unremarkable. LIVER: Unremarkable. No gross lesion or ductal dilatation. GALLBLADDER AND BILE DUCTS: Cholecystectomy. PANCREAS: Unremarkable. No gross lesion or ductal dilatation. SPLEEN: Unremarkable. ADRENALS: Unremarkable. No mass. KIDNEYS AND URETERS: 1 centimeter right renal calcification. No hydronephrosis or gross mass. VASCULATURE: Unremarkable. No aortic aneurysm. No aortic atherosclerotic calcification or mural plaque present. BOWEL: Unremarkable. No obstruction. No gross mural thickening. APPENDIX: Unremarkable. Normal appendix. PERITONEUM: Unremarkable. No free fluid. No free air. LYMPH NODES: Unremarkable. No enlarged lymph nodes. BLADDER: Unremarkable. REPRODUCTIVE: Unremarkable. BONES: No acute fracture. OTHER FINDINGS: Small hiatal hernia. IMPRESSION: 1 centimeter right renal calcification. No hydronephrosis or gross mass. Post cholecystectomy. Small hiatal hernia.
[2019-04-11] MEDS: Oxycodone/Acetaminophen 5/325 mg Tab PO PRN (17:20)
[2019-04-12] MEDS: Oxycodone/Acetaminophen 5/325 mg Tab PO PRN (01:31)
[2019-04-12] MEDS: Lactated Ringer's 1,000 ML IV SCH (06:31)
[2019-04-12 08:14] VITALS: BP 160/89; PULSE 76; TEMP 98.1; O2SAT 98
--- NOTE | 2019-04-12 09:41 | CP.PCM.DIS ---
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 (2) Elevated lipase Status: Acute Comment: initial lipase 1300s to 84; GI recs MRCP outpatient (3) Hydrosalpinx Status: Acute Comment: outpatient management, rec TAKER AWAY follow up Hospital Course - Lab Results Lab Results: Micro Results 04/10/19 18:52 Urine,Clean Catch Urine Culture - Final 10-50,000 CFU/ML. MULTIPLE SPECIES. PROBABLE CONTAMINATION. Most Recent Lab Values WBC 8.5 K/uL (4.8-10.8) 04/10/19 15:48 RBC 4.37 Mil/uL (3.80-5.20) 04/10/19 15:48 Hgb 13.5 g/dL (11.0-16.0) 04/10/19 15:48 Hct 39.3 % (34.0-47.0) 04/10/19 15:48 MCV 90.1 fL (81.0-99.0) 04/10/19 15:48 MCH 30.9 pg (27.0-31.0) 04/10/19 15:48 MCHC 34.3 g/dL (33.0-37.0) 04/10/19 15:48 RDW 12.8 % (11.5-14.5) 04/10/19 15:48 Plt Count 310 K/uL (130-400) 04/10/19 15:48 MPV 8.8 fL (7.2-11.7) 04/10/19 15:48 Neut % (Auto) 57.1 % (50.0-75.0) 04/10/19 15:48 Lymph % (Auto) 34.4 % (20.0-40.0) 04/10/19 15:48 [place] % (Auto) 6.8 % (0.0-10.0) 04/10/19 15:48 Eos % (Auto) 1.5 % (0.0-4.0) 04/10/19 15:48 Baso % (Auto) 0.2 % (0.0-2.0) 04/10/19 15:48 Neut # (Auto) 4.8 K/uL (1.8-7.0) 04/10/19 15:48 Lymph # (Auto) 2.9 K/uL (1.0-4.3) 04/10/19 15:48 [place] # (Auto) 0.6 K/uL (0.0-0.8) 04/10/19 15:48 Eos # (Auto) 0.1 K/uL (0.0-0.7) 04/10/19 15:48 Baso # (Auto) 0.0 K/uL (0.0-0.2) 04/10/19 15:48 Sodium 139 mmol/L (132-148) 04/11/19 06:40 Potassium 4.1 mmol/L (3.6-5.2) 04/11/19 06:40 Chloride 101 mmol/L (98-107) 04/11/19 06:40 Carbon Dioxide 30 mmol/L (22-30) 04/11/19 06:40 Anion Gap 13 (10-20) 04/11/19 06:40 BUN 20 mg/dL (7-17) H 04/11/19 06:40 Creatinine 0.7 mg/dL (0.7-1.2) 04/11/19 06:40 Est GFR ( Amer) > 60 04/11/19 06:40 Est GFR (Non-Af Amer) > 60 04/11/19 06:40 Random Glucose 118 mg/dL (65-105) H 04/11/19 06:40 Calcium 9.3 mg/dl (8.6-10.4) 04/11/19 06:40 Total Bilirubin 0.5 mg/dL (0.2-1.3) 04/11/19 06:40 AST 34 U/L (14-36) 04/11/19 06:40 ALT 36 U/L (9-52) 04/11/19 06:40 Alkaline Phosphatase 73 U/L (38-126) 04/11/19 06:40 Total Protein 7.3 g/dL (6.3-8.3) 04/11/19 06:40 Albumin 4.0 g/dL (3.5-5.0) 04/11/19 06:40 Globulin 3.4 gm/dL (2.2-3.9) 04/11/19 06:40 Albumin/Globulin Ratio 1.2 (1.0-2.1) 04/11/19 06:40 Triglycerides 74 mg/dL (0-149) 04/11/19 06:40 Cholesterol 176 mg/dL (0-199) 04/11/19 06:40 LDL Cholesterol Direct 102 mg/dL (0-129) 04/11/19 06:40 HDL Cholesterol 53 mg/dL (30-70) 04/11/19 06:40 Lipase 84 U/L (23-300) 04/11/19 06:40 Urine Color Yellow (YELLOW) 04/10/19 15:48 Urine Clarity Clear (Clear) 04/10/19 15:48 Urine pH 6.0 (5.0-8.0) 04/10/19 15:48 Ur Specific [place] 1.005 (1.003-1.030) 04/10/19 15:48 Urine Protein Negative mg/dL (NEGATIVE) 04/10/19 15:48 Urine Glucose (UA) Normal mg/dL (Normal) 04/10/19 15:48 Urine Ketones Negative mg/dL (NEGATIVE) 04/10/19 15:48 Urine Blood Negative (NEGATIVE) 04/10/19 15:48 Urine Nitrate Negative (NEGATIVE) 04/10/19 15:48 Urine Bilirubin Negative (NEGATIVE) 04/10/19 15:48 Urine Urobilinogen Normal mg/dL (0.2-1.0) 04/10/19 15:48 Ur Leukocyte Esterase Neg Darian/uL (Negative) 04/10/19 15:48 Urine WBC (Auto) < 1 /hpf (0-5) 04/10/19 15:48 Urine RBC (Auto) < 1 /hpf (0-3) 04/10/19 15:48 Ur Squamous Epith Cells 1 /hpf (0-5) 04/10/19 15:48 Urine HCG, Qual Negative (NEGATIVE) 04/11/19 02:04 - Hospital Course Hospital Course: HPI: patient is a 54 y.o. . LNMP 01/2018, no vaginal bleeding since who presented to E.D. c/o LLQ pain, onset 3 days ago, pain scale 10/10, described as a sharp stabbing sensation, in the LLQ (patient points to the left groin area). Denies nausea, vomiting, diarrhea or constipation. This is the third time patient has experienced this pain. Patient received morphine and toradol in the E.D.: reports pain scale now 8/10. HPI: LLQ pain first onset 2 months ago. Seen in E.D. at [facility], treated for UTI with antibiotics; pain resolved completely. Then 1 month ago, similar pain occurred. Patient returned to E.D. at [facility]. Again, thought to have a UTI and again treated with antibiotics. Patient was advised to follow up with her TAKER AWAY "as they said I had some kind of cysts"; "I haven't had time to do so". Patient has ongoing TAKER AWAY relationship with Dr. Martins at [facility] ([address] [place] [address]). 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 During hospital course, patient had pain control with toradol PO 10 mg Q8H. Patient s/p bowel movement w/ resolution of abdominal pain. Pelvic U/S R anterior fibroid 3.5 cm X 2.5 X 3.3 cm & left adenxal tubular consistent w/ hydrosalpinx. Incidental R renal 1cm calcification found on CT. GI recommending o/p MRCP follow up for initial lipase of 1300s that downtrended/normalized to 80s. Above is only a summary of patients stay during hospitalization. See EMR for full details. Below are discharge instructions provided to the patient upon discharge. Patient stable for discharge per Dr. Unger 1) Please follow up with TAKER AWAY, Dr. Martins [facility], [address], within 1 week for further management of hydrosalpinx. 2) Follow up with Dr. Christoph PATEL for outpatient MRCP to followup your elevated lipase on labs. 3) Please continue to follow up with your primary care physician as scheduled for following management: Please consider changing pain medicine for chronic constipation and/or adding a laxative. Please discuss with primary doctor for further management. Incidental CT finding of 1cm right renal calcifcation w/ No hydronephrosis 4_Please return to the ED if symptoms resume Please take care Discharge Exam - Head Exam Head Exam: ATRAUMATIC, NORMOCEPHALIC - Eye Exam Eye Exam: EOMI - ENT Exam ENT Exam: Mucous Membranes Moist - Respiratory Exam Respiratory Exam: Clear to PA & Lateral, UNREMARKABLE. absent: Rales, Rhonchi, Wheezes - Cardiovascular Exam Cardiovascular Exam: +S1, +S2. absent: Systolic Murmur - GI/Abdominal Exam GI & Abdominal Exam: Normal Bowel Sounds, Soft. absent: Diminished Bowel Sounds, Distended, Firm - Extremities Exam Additional comments: no calf tenderness, no pedal edema - Back Exam Back exam: absent: CVA tenderness (L), CVA tenderness (R) - Neurological Exam Neurological exam: Alert, Oriented x3 - Psychiatric Exam Psychiatric exam: Normal Affect, Normal Mood - Skin Skin Exam: Dry, Normal Color, Warm Discharge Plan - Follow Up Plan Condition: GOOD Disposition: HOME/ ROUTINE Instructions: Constipation in Adults Additional Instructions: Patient stable for discharge per Dr. Unger 1) Please follow up with TAKER AWAY, Dr. Martins [facility], [address], within 1 week for further management of hydrosalpinx. 2) Follow up with Dr. Christoph PATEL for outpatient MRCP to followup your elevated lipase on labs. 3) Please continue to follow up with your primary care physician as scheduled for following management: Please consider changing pain medicine for chronic constipation and/or adding a laxative. Please discuss with primary doctor for further management. 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 MULTIPLE SPECIES. PROBABLE CONTAMINATION. Most Recent Lab Values WBC 8.5 K/uL (4.8-10.8) 04/10/19 15:48 RBC 4.37 Mil/uL (3.80-5.20) 04/10/19 15:48 Hgb 13.5 g/dL (11.0-16.0) 04/10/19 15:48 Hct 39.3 % (34.0-47.0) 04/10/19 15:48 MCV 90.1 fL (81.0-99.0) 04/10/19 15:48 MCH 30.9 pg (27.0-31.0) 04/10/19 15:48 MCHC 34.3 g/dL (33.0-37.0) 04/10/19 15:48 RDW 12.8 % (11.5-14.5) 04/10/19 15:48 Plt Count 310 K/uL (130-400) 04/10/19 15:48 MPV 8.8 fL (7.2-11.7) 04/10/19 15:48 Neut % (Auto) 57.1 % (50.0-75.0) 04/10/19 15:48 Lymph % (Auto) 34.4 % (20.0-40.0) 04/10/19 15:48 [place] % (Auto) 6.8 % (0.0-10.0) 04/10/19 15:48 Eos % (Auto) 1.5 % (0.0-4.0) 04/10/19 15:48 Baso % (Auto) 0.2 % (0.0-2.0) 04/10/19 15:48 Neut # (Auto) 4.8 K/uL (1.8-7.0) 04/10/19 15:48 Lymph # (Auto) 2.9 K/uL (1.0-4.3) 04/10/19 15:48 [place] # (Auto) 0.6 K/uL (0.0-0.8) 04/10/19 15:48 Eos # (Auto) 0.1 K/uL (0.0-0.7) 04/10/19 15:48 Baso # (Auto) 0.0 K/uL (0.0-0.2) 04/10/19 15:48 Sodium 139 mmol/L (132-148) 04/11/19 06:40 Potassium 4.1 mmol/L (3.6-5.2) 04/11/19 06:40 Chloride 101 mmol/L (98-107) 04/11/19 06:40 Carbon Dioxide 30 mmol/L (22-30) 04/11/19 06:40 Anion Gap 13 (10-20) 04/11/19 06:40 BUN 20 mg/dL (7-17) H 04/11/19 06:40 Creatinine 0.7 mg/dL (0.7-1.2) 04/11/19 06:40 Est GFR ( Amer) > 60 04/11/19 06:40 Est GFR (Non-Af Amer) > 60 04/11/19 06:40 Random Glucose 118 mg/dL (65-105) H 04/11/19 06:40 Calcium 9.3 mg/dl (8.6-10.4) 04/11/19 06:40 Total Bilirubin 0.5 mg/dL (0.2-1.3) 04/11/19 06:40 AST 34 U/L (14-36) 04/11/19 06:40 ALT 36 U/L (9-52) 04/11/19 06:40 Alkaline Phosphatase 73 U/L (38-126) 04/11/19 06:40 Total Protein 7.3 g/dL (6.3-8.3) 04/11/19 06:40 Albumin 4.0 g/dL (3.5-5.0) 04/11/19 06:40 Globulin 3.4 gm/dL (2.2-3.9) 04/11/19 06:40 Albumin/Globulin Ratio 1.2 (1.0-2.1) 04/11/19 06:40 Triglycerides 74 mg/dL (0-149) 04/11/19 06:40 Cholesterol 176 mg/dL (0-199) 04/11/19 06:40 LDL Cholesterol Direct 102 mg/dL (0-129) 04/11/19 06:40 HDL Cholesterol 53 mg/dL (30-70) 04/11/19 06:40 Lipase 84 U/L (23-300) 04/11/19 06:40 Urine Color Yellow (YELLOW) 04/10/19 15:48 Urine Clarity Clear (Clear) 04/10/19 15:48 Urine pH 6.0 (5.0-8.0) 04/10/19 15:48 Ur Specific [place] 1.005 (1.003-1.030) 04/10/19 15:48 Urine Protein Negative mg/dL (NEGATIVE) 04/10/19 15:48 Urine Glucose (UA) Normal mg/dL (Normal) 04/10/19 15:48 Urine Ketones Negative mg/dL (NEGATIVE) 04/10/19 15:48 Urine Blood Negative (NEGATIVE) 04/10/19 15:48 Urine Nitrate Negative (NEGATIVE) 04/10/19 15:48 Urine Bilirubin Negative (NEGATIVE) 04/10/19 15:48 Urine Urobilinogen Normal mg/dL (0.2-1.0) 04/10/19 15:48 Ur Leukocyte Esterase Neg [place]/uL (Negative) 04/10/19 15:48 Urine WBC (Auto) < 1 /hpf (0-5) 04/10/19 15:48 Urine RBC (Auto) < 1 /hpf (0-3) 04/10/19 15:48 Ur Squamous Epith Cells 1 /hpf (0-5) 04/10/19 15:48 Urine HCG, Qual Negative (NEGATIVE) 04/11/19 02:04 Attending/Attestation - Attestation I have personally seen and examined this patient.: Yes I have fully participated in the care of the patient.: Yes I have reviewed all pertinent clinical information, including history, physical exam and plan: Yes Notes (Text): 04/12/19 10:11 Patient seen, evaluated and examined by me with the Resident. I agree with the above as documented. Patient encouraged to make and keep all appointments and referrals, as per her insurance. Patient counseled on importance of investigating alternate methods of pain relief, and weight loss.
[2019-04-12] MEDS ORDERED: Pneumococcal 23-Valent Vaccine IM ONE (10:00)
== END 2019-04-12 11:12 | disposition home or self-care (01) | DRG 183 ==
LOC: C.ER 14:47 → C.9E 18:00 → C.3T 18:12
PROVIDERS: ADMIT Obstetrics & Gynecology; ATTEND Obstetrics & Gynecology
DX: K59.09 Other constipation (principal); I10 Essential (primary) hypertension; G89.29 Other chronic pain; D25.9 Leiomyoma of uterus, unspecified; E66.9 Obesity, unspecified; Z68.41 Body mass index [BMI] 40.0-44.9, adult; N70.11 Chronic salpingitis; N83.201 Unspecified ovarian cyst, right side; N83.202 Unspecified ovarian cyst, left side; K21.9 Gastro-esophageal reflux disease without esophagitis